=== PATIENT | female | born 1980 | race Caucasian/White ===

== ENCOUNTER 2017-10-20 18:10 | Emergency (ER) | payer SELFPAY ==
[~2017-10-20] VITALS: Ht 162.6 cm; Wt 77.2 kg
[2017-10-20 18:38] VITALS: Ht 162.6 cm; Wt 77.2 kg
== END 2017-10-20 22:20 | disposition left against medical advice (07) ==
LOC: E/R 18:10
DX: Z53.21 Procedure and treatment not carried out due to patient leaving prior to being seen by health care provider (principal)